=== PATIENT | male | born 1940 | race Caucasian/White ===

== ENCOUNTER 2020-02-26 13:47 | Outpatient (CLI) | payer OTHER | END 2020-02-26 13:48 | disposition home or self-care (01) | LOC: PPH VACUNA 13:47 | PROVIDERS: ATTEND Emergency Medicine Pediatric Emergency Medicine | DX: Z23 Encounter for immunization (principal) ==

== ENCOUNTER 2020-03-18 08:56 | Outpatient (CLI) | payer OTHER | END 2020-03-18 15:55 | disposition home or self-care (01) | LOC: PPH VACUNA 08:56 | PROVIDERS: ATTEND Emergency Medicine Pediatric Emergency Medicine | DX: Z23 Encounter for immunization (principal) ==

== ENCOUNTER 2020-11-24 08:00 | Outpatient (CLI) | payer OTHER | END 2020-11-24 08:09 | disposition home or self-care (01) | LOC: PPH VACUNA 08:00 | PROVIDERS: ATTEND Emergency Medicine Pediatric Emergency Medicine | DX: Z23 Encounter for immunization (principal) ==

== ENCOUNTER 2023-10-25 12:22 | Outpatient (CLI) | payer OTHER | END 2023-10-25 12:29 | disposition home or self-care (01) | LOC: LAB 12:22 | PROVIDERS: ATTEND Urology | DX: R97.20 Elevated prostate specific antigen [PSA] (principal) ==

== ENCOUNTER 2023-11-04 07:22 | Outpatient (CLI) | payer OTHER | END 2023-11-04 07:27 | disposition home or self-care (01) | LOC: SONOGRAMA 07:22 | PROVIDERS: ATTEND Urology | DX: C61 Malignant neoplasm of prostate (principal); N40.1 Benign prostatic hyperplasia with lower urinary tract symptoms; R97.20 Elevated prostate specific antigen [PSA] ==